=== PATIENT | female | born 1990 | race Caucasian/White ===

== ENCOUNTER 2021-04-30 14:14 | Emergency (ER) | payer OTHER ==
[2021-04-30] MEDS ORDERED: NALOXONE HCL 2 MG/2 ML VIAL ONE (14:37)
[2021-04-30] MEDS ORDERED: NA CHLORIDE 0.9% 1,000 ML ONE (14:37)
[2021-04-30 14:54] LABS: Urine Blood Negative (Negative); Urine Glucose Negative (Negative); Urine Protein Negative (Negative); Urine Specific Gravity >=1.030 (1.005-1.030)
[2021-04-30 14:55] LABS: Absolute Lymphocytes (CBC) 1.9 K/uL (0.7-4.9); Basophils % 0.7 % (0-1.3); Hematocrit 44.4 % (36.0-45.0); Lymphocytes % 23.5 % (15.3-44.8); MPV 8.1 fL (7.6-11.3); RBC Red Blood Cell Count 4.69 M/uL (3.86-4.86)
[2021-04-30 15:02] LABS: Protime INR 0.99
[2021-04-30 15:18] LABS: Barbiturates NEGATIVE (NEGATIVE); Benzodiazepines POSITIVE (NEGATIVE); Cocaine NEGATIVE (NEGATIVE); METHAMPHETAM POSITIVE (NEGATIVE); Methadone NEGATIVE (NEGATIVE); Opiates NEGATIVE (NEGATIVE); Phencyclidine NEGATIVE (NEGATIVE); THC Cannibis POSITIVE (NEGATIVE)
[2021-04-30 15:19] LABS: ALT/SGPT 25 U/L (12-78); AST/SGOT 23 U/L (15-37); Albumin 4.6 g/dL (3.4-5.0); Alkaline Phosphatase 111 U/L (45-117); BUN Blood Urea Nitrogen 12 mg/dL (7-18); Bicarbonate 29 mmol/L (21-32); Bilirubin Direct 0.1 mg/dL (0-0.2); Bilirubin Total 0.5 mg/dL (0.2-1.0); Glucose Level 103 mg/dL (74-106); Potassium 3.7 mmol/L (3.5-5.1); Protein, Total 9.1 g/dL (6.4-8.2); Sodium Level 137 mmol/L (136-145)
[2021-04-30 15:39] LABS: Urine Specific Gravity/Preg >1.030 (1.005-1.030)
--- NOTE | 2021-04-30 16:08 | RAD REPORT ---
EXAM DESCRIPTION: RAD - Ankle Right 2 View - 04/30/2021 3:15 pm CLINICAL HISTORY: SWELLING Pain and swelling. COMPARISON: No comparisons FINDINGS: Small fracture is seen involving the distal most aspect of the fibula. There is mild to mo derate adjacent soft tissue swelling. No dislocation is evident.
[2021-04-30] MEDS ORDERED: FLUMAZENIL 0.1 MG/ML (5 mL VIAL) IV ONE (16:59)
--- NOTE | 2021-04-30 18:15 | ER ---
Nurse's Notes [facility] Name: Felicitas Campbell Age: 31 yrs Sex: Female : 1990 Arrival Date: 04/30/2021 Time: 14:16 Bed 2 Private MD: Diagnosis: Nondisplaced fracture of lateral malleolus of right fibula;Drug abuse counseling and surveillance Presentation: 04/30 14:16 Chief complaint: Patient states: Re-injured R ankle today, initial injury 2 months ago. ll1 Injecting meth since last night. Narcan 2mg IN given en route. VSS. Smoked marijuana laced with fentanyl today. Coronavirus screen: Client denies travel out of the [place] in the last 14 days. At this time, the client does not indicate any symptoms associated with coronavirus-19. Ebola Screen: Patient denies travel to an Ebola-affected area in the 21 days before illness onset. Initial Sepsis Screen: Does the patient meet any 2 criteria? No. Patient's initial sepsis screen is negative. Does the patient have a suspected source of infection? No. Patient's initial sepsis screen is negative. Risk Assessment: Do you want to hurt yourself or someone else? Patient reports no desire to harm self or others. Onset of symptoms was April 30, 2021. 14:16 Method Of Arrival: EMS: [facility] [place] 14:16 Acuity: BERNIE 3 ll1 Triage Assessment: 14:20 General: Appears unkempt, Behavior is cooperative, appropriate for age, flat. Pain: ll1 Complains of pain in R ankle. Neuro: Level of Consciousness is obeys commands, listless, Oriented to person, place, time, situation, Dental Laboratory Manager are weak bilaterally Full function Weakness Speech is normal, Facial symmetry appears normal, Reports weakness. Cardiovascular: No deficits noted. Respiratory: No deficits noted. Musculoskeletal: Circulation, motion, and sensation intact. Capillary refill < 3 seconds, Range of motion: intact in all extremities, Swelling present in R ankle. Injury Description: Bruise. REGISTER IN CHANCERY: 15:43 LMP N/A - control method ll1 Historical: - Allergies: 14:19 Amoxicillin; ll1 14:19 cyclobenzaprine HCl; ll1 14:19 PENICILLINS; ll1 - PMHx: 14:19 DRUG ADDICTION; Umbilical hernia; ll1 - PSHx: 14:19 section; ll1 - Immunization history:: Adult Immunizations up to date. - Social history:: Smoking status: Patient reports the use of cigarette tobacco products, smokes one-half pack cigarettes per day. Screenin:57 Abuse screen: Denies threats or abuse. Nutritional screening: No deficits noted. ll1 Tuberculosis screening: No symptoms or risk factors identified. Fall Risk Fall in past 12 months (25 points). Secondary diagnosis (15 points) impaired mobility, drug use. IV access (20 points). Ambulatory Aid- Crutches/Cane/Walker (15 pts). Total Vega Fall Scale indicates High Risk Score (45 or more points). Fall prevention measures have been instituted. Side Rails Up X 2 Frequent Obs/Assessments Occuring As available patient and family educated on Fall Prevention Program and Strategies. Assessment: 15:20 Reassessment: No changes from previously documented assessment. Patient and/or family ll1 updated on plan of care and expected duration. Pain level reassessed. 16:21 Reassessment: No changes from previously documented assessment. Patient and/or family ll1 updated on plan of care and expected duration. Pain level reassessed. Patient is alert, oriented x 3, equal unlabored respirations, skin warm/dry/pink. 17:05 Reassessment: No changes from previously documented assessment. Patient and/or family ll1 updated on plan of care and expected duration. Pain level reassessed. 18:00 Reassessment: No changes from previously documented assessment. Patient and/or family ll1 updated on plan of care and expected duration. Pain level reassessed. Patient is alert, oriented x 3, equal unlabored respirations, skin warm/dry/pink. 18:25 Musculoskeletal: Circulation, motion, and sensation intact. Capillary refill < 3 ll1 seconds, Swelling present in R ankle. 18:27 Reassessment: Requesting pain medicine. Dr. Weeks will not give her any due to being ll1 over sedated when arrived. Boyfriend verbalized understanding. . Vital Signs: 14:16 BP 137 / 106; Pulse 70; Resp 17; Temp 97.3; Pulse Ox 99% ; Pain 8/10; ll1 14:54 BP 117 / 74; ll1 15:42 BP 105 / 77; Pulse 66; Resp 16; Pulse Ox 99% ; ll1 17:05 BP 95 / 60; Pulse 60; Resp 15; Pulse Ox 98% ; ll1 18:24 BP 102 / 61; Pulse 61; Resp 16; Temp 98.0; Pulse Ox 99% ; Pain 10/10; ll1 ED Course: 14:16 Patient arrived in ED. ll1 14:17 Arlene Weeks MD is Attending Physician. sp3 14:19 Triage completed. ll1 14:20 Arm band placed on Patient placed in an exam room, on a stretcher. ll1 14:38 Missed attempt(s): 22 gauge in right antecubital area. Bleeding controlled, band aid ll1 applied, catheter tip intact. 14:40 Inserted saline lock: 22 gauge in right antecubital area, using aseptic technique. iw Blood collected. 14:43 Temitope Casey, JOSE EDUARDO is Primary Nurse. ll1 14:58 Patient has correct armband on for positive identification. Bed in low position. Call ll1 light in reach. Side rails up X 1. Pulse ox on. NIBP on. 15:16 Ankle Right 2 View XRAY In Process Unspecified. EDMS 15:39 EKG done, by ED staff, reviewed by Arlene Weeks MD. em1 18:14 Brian Wood MD is Referral Physician. sp3 18:20 Crutch training done. Air stirrup applied to right ankle. ll1 18:25 IV discontinued, intact, bleeding controlled, No redness/swelling at site. Pressure ll1 dressing applied. 18:26 No provider procedures requiring assistance completed. ll1 Administered Medications: 14:43 Drug: NARcan (naloxone) 2 mg Route: IVP; Site: right antecubital; ll1 15:43 Follow up: Response: No adverse reaction; RASS: Drowsy (-1) ll1 14:43 Drug: NS 0.9% 1000 ml Route: IV; Rate: 1 bolus; Site: right antecubital; ll1 17:04 Follow up: Response: No adverse reaction; IV Status: Completed infusion; IV Intake: ll1 1000ml 17:04 Drug: Flumazenil 0.2 mg Route: IVP; Site: right antecubital; ll1 18:26 Follow up: Response: No adverse reaction ll1 Intake: 17:04 IV: 1000ml; Total: 1000ml. ll1 Outcome: 18:14 Discharge ordered by . sp3 18:26 Discharged to home via wheelchair. ll1 18:26 Condition: stable 18:26 Discharge instructions given to patient, family, Instructed on discharge instructions, follow up and referral plans. crutch walking, Demonstrated understanding of instructions, follow-up care, medications, crutch walking. 18:30 Patient left the ED. ll1 Signatures: Dispatcher [employer] EDVirgie Boucher RN RN iw Martinez, Eric 1 Temitope Casey RN RN ll1 Arlene Weeks MD MD sp3
--- NOTE | 2021-04-30 18:15 | EDPHYS ---
Physician Documentation [facility] Name: Feilcitas Campbell Age: 31 yrs Sex: Female : 1990 Arrival Date: 04/30/2021 Time: 14:16 Bed 2 Private MD: ED Physician Arlene Weeks HPI: 04/30 14:30 This 31 yrs old Female presents to ER via EMS with complaints of Ankle Injury sp3 and drug use. 14:30 31-year-old female with a history of polysubstance drug abuse, homelessness, C-sections sp3 x3 presents via EMS for IV drug use of unknown substance (possibly laced with secondary substance) and smoking marijuana with fentanyl lacing as per EMS. Patient states that she gets all of her drugs from her friends. She is currently jobless and homeless and states [place] the [place] night. She has no complaints other than being "tired" and right ankle pain which she states she has had for several weeks after a possible twisting injury. On review of systems she denies headache, neck pain, chest pain, shortness of breath, URI symptoms, fever, abdominal pain, nausea, vomiting, diarrhea, rash, focal neuro deficit, or any other symptoms at this time. Patient did get Narcan prior to arrival by EMS intranasally.. 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 - Social history:: Smoking status: Patient reports the use of cigarette tobacco products, smokes one-half pack cigarettes per day. ROS: 14:32 Eyes: Negative for injury, pain, redness, and discharge, Neck: Negative for injury, sp3 pain, and swelling, Cardiovascular: Negative for chest pain, palpitations, and edema, Respiratory: Negative for shortness of breath, cough, wheezing, and pleuritic chest pain, Abdomen/GI: Negative for abdominal pain, nausea, vomiting, diarrhea, and constipation, Back: Negative for injury and pain, Skin: Negative for injury, rash, and discoloration, Neuro: Negative for headache, weakness, numbness, tingling, and seizure, Allergy/Immunology: Negative for hives, rash, and allergies, Endocrine: Negative for neck swelling, polydipsia, polyuria, polyphagia, and marked weight changes, Hematologic/Lymphatic: Negative for swollen nodes, abnormal bleeding, and unusual bruising. 14:32 All other systems are negative. Exam: 14:33 Head/Face: Normocephalic, atraumatic. Eyes: Pupils equal round and reactive to light, sp3 extra-ocular motions intact. Lids and lashes normal. Conjunctiva and sclera are non-icteric and not injected. Cornea within normal limits. Periorbital areas with no swelling, redness, or edema. ENT: Nares patent. No nasal discharge, no septal abnormalities noted. External auditory canals are clear. Oropharynx with no redness, swelling, or masses, exudates, or evidence of obstruction, uvula midline. Mucous membranes moist. Neck: Trachea midline, no thyromegaly or masses palpated, and no cervical lymphadenopathy. Supple, full range of motion without nuchal rigidity, or vertebral point tenderness. No Meningismus. Chest/axilla: Normal chest wall appearance and motion. Nontender with no deformity. No lesions are appreciated. Cardiovascular: Regular rate and rhythm with a normal S1 and S2. No gallops, murmurs, or rubs. Normal PMI, no JVD. No pulse deficits. Respiratory: Lungs have equal breath sounds bilaterally, clear to auscultation and percussion. No rales, rhonchi or wheezes noted. No increased work of breathing, no retractions or nasal flaring. Abdomen/GI: Soft, non-tender, with normal bowel sounds. No distension or tympany. No guarding or rebound. No evidence of tenderness throughout. Skin: Warm, dry with normal turgor. Normal color with no rashes, no lesions, and no evidence of cellulitis. Neuro: Awake and alert, GCS 15, oriented to person, place, time, and situation. Cranial nerves II-XII grossly intact. Motor strength 5/5 in all extremities. Sensory grossly intact. Cerebellar exam normal. Normal gait. Psych: Awake, alert, with orientation to person, place and time. Behavior, mood, and affect are within normal limits. 14:33 Constitutional: The patient appears Patient is slowly getting more sleepy however her pulse oxygenation is 98% on 2 L nasal cannula. She does have poor dentition consistent with methamphetamine use. She also has right lateral swelling of her ankle with normal pulses, normal neuro exam, normal capillary refill with palpable dorsalis pedis pulse. Track pina are evident bilateral antecubital fossa's consistent with IV drug use. Patient is afebrile with otherwise normal vital signs. 15:31 ECG was reviewed by the Attending Physician. EKG demonstrates normal sinus rhythm at 70 sp3 bpm with normal intervals, normal QRS, normal axis with nonspecific ST/T changes particularly inferiorly without any evidence of acute ischemia. Vital Signs: 14:16 BP 137 / 106; Pulse 70; Resp 17; Temp 97.3; Pulse Ox 99% ; Pain 8/10; ll1 14:54 BP 117 / 74; ll1 15:42 BP 105 / 77; Pulse 66; Resp 16; Pulse Ox 99% ; ll1 17:05 BP 95 / 60; Pulse 60; Resp 15; Pulse Ox 98% ; ll1 18:24 BP 102 / 61; Pulse 61; Resp 16; Temp 98.0; Pulse Ox 99% ; Pain 10/10; ll1 MDM: 14:17 Patient medically screened. sp3 14:35 Data reviewed: vital signs, nurses notes. ED course: 31-year-old female with unknown sp3 quantity of IV drug use and inhaled drug use. Unknown quantity, duration, and timing liter as observing her in the ED and continued Narcan administration. Due to her declining mental status we will give an additional 2 mg IV Narcan here in the emergency department continue to observe her. Standard toxicology work-up including urine drug screen, serum laboratory values, urinalysis, test and EKG will be obtained. Disposition based on patient course and laboratory findings. There is no suspicion of sexual assault or physical assault at this time and patient is denying both as well. She does contract for safety and is not suicidal or homicidal.. 18:10 ED course: Alert, awake, and yelling at the nursing staff and demanding to be sp3 discharged. We will oblige and discharge her with orthopedic follow-up.. 04/30 14:17 Order name: Acetaminophen; Complete Time: 15:29 sp3 04/30 14:17 Order name: Basic Metabolic Panel; Complete Time: 15:29 sp3 04/30 14:17 Order name: CBC with Diff; Complete Time: 15:29 sp3 04/30 14:17 Order name: ETOH Level; Complete Time: 15:29 sp3 04/30 14:17 Order name: Hepatic Function; Complete Time: 15:29 sp3 04/30 14:17 Order name: PT-INR; Complete Time: 15:29 sp3 04/30 14:17 Order name: Ptt, Activated; Complete Time: 15:29 sp3 04/30 14:17 Order name: Salicylate; Complete Time: 16:03 sp3 04/30 14:17 Order name: Urine Drug Screen; Complete Time: 15:29 sp3 04/30 14:29 Order name: Ankle Right 2 View XRAY; Complete Time: 16:47 sp3 04/30 14:54 Order name: Urine --Ancillary (enter results); Complete Time: 16:03 bd 04/30 14:54 Order name: Urine Dipstick-Ancillary; Complete Time: 15:29 EDMS 04/30 14:17 Order name: EKG; Complete Time: 14:18 sp3 04/30 14:17 Order name: EKG - Nurse/Tech; Complete Time: 15:26 sp3 04/30 14:17 Order name: IV Saline Lock; Complete Time: 14:24 sp3 04/30 14:17 Order name: Labs collected and sent; Complete Time: 14:24 sp3 04/30 14:17 Order name: Suicide Screening ([place]); Complete Time: 14:55 sp3 04/30 14:17 Order name: Urine Dipstick-Ancillary (obtain specimen); Complete Time: 14:55 sp3 04/30 14:18 Order name: Urine Test (obtain specimen); Complete Time: 14:55 sp3 04/30 16:53 Order name: Splint - Ankle: Aircast; Complete Time: 18:26 sp3 04/30 16:53 Order name: Crutches; Complete Time: 18:25 sp3 Administered Medications: 14:43 Drug: NARcan (naloxone) 2 mg Route: IVP; Site: right antecubital; ll1 15:43 Follow up: Response: No adverse reaction; RASS: Drowsy (-1) ll1 14:43 Drug: NS 0.9% 1000 ml Route: IV; Rate: 1 bolus; Site: right antecubital; ll1 17:04 Follow up: Response: No adverse reaction; IV Status: Completed infusion; IV Intake: ll1 1000ml 17:04 Drug: Flumazenil 0.2 mg Route: IVP; Site: right antecubital; ll1 18:26 Follow up: Response: No adverse reaction ll1 Disposition Summary: 04/30/21 18:14 Discharge Ordered Location: Home sp3 Condition: Stable sp3 Diagnosis - Nondisplaced fracture of lateral malleolus of right fibula sp3 - Drug abuse counseling and surveillance sp3 Followup: sp3 - With: Brian Wood MD - When: 1 - 2 days - Reason: Recheck today's complaints Discharge Instructions: - Discharge Summary Sheet sp3 - Nondisplaced Fibular Ankle Fracture Treated With Immobilization sp3 Forms: - Medication Reconciliation Form sp3 - Thank You Letter sp3 - Antibiotic Education sp3 - Prescription Opioid Use sp3 Signatures: Dispatcher [employer] EDMS Temitope Casey RN RN [facility] Arlene Weeks MD MD sp3 Corrections: (The following items were deleted from the chart) 14:36 14:35 ED course: 31-year-old female with unknown quantity of IV drug use and inhaled sp3 drug use. Unknown quantity, duration, and timing liter as observing her in the ED and continued Narcan administration. Due to her declining mental status we will give an additional 2 mg IV Narcan here in the emergency department continue to observe her. Standard toxicology work-up including urine drug screen, serum laboratory values, urinalysis, test and EKG will be obtained. Disposition based on patient course and laboratory findings. There is no suspicion of sexual assault or physical assault at this time and patient is denying both as well. She does contract for safety and is not suicidal or homicidal.. sp3
[2021-04-30 18:56] VITALS: BP 102/61; TEMP 98; O2SAT 99
--- NOTE | 2021-05-02 11:26 | EKG ---
Test Date: 2021-04-30 Test Time: 15:30:59 Packager And Strapper: SANTANA MEASUREMENT RESULTS: Intervals: Rate: 70 HI: 152 QRSD: 80 QT: 400 QTc: 432 Chappells: P: 85 HI: 152 QRS: 72 T: 64 INTERPRETIVE STATEMENTS: Normal sinus rhythm Normal ECG Compared to ECG 12/22/2012 03:52:49 No significant changes Electronically Signed On 05-02-21 11:20:56 BOOKKEEPING MACHINE OPERATOR by Bong Wilkins
--- OUTSIDE RECORDS SUMMARY | 2021-05-05 16:28 | XMS REPORT | Continuity of Care Document ---
:1990 Author Organization [facility] t Address Person [facility] Jonathan Velazco [address] [place] [address] Care Team Providers Name Role Phone Flores Modi Attending Clinician Payers Payer Name Policy Type Policy Number Effective Date Expiration Date [facility] [id number] 2014 LONGTERM 00:00:00 Problems Condition Condition Condition Status Onset Resolution Last Treating Co mments Source Name Details Category Date Date Treatment Clinician Date Liveborn Liveborn Disease Active Unive rs by by 1 ity of 00:00: [facility] Medical Branch Previous Previous Disease Active Unive rs - ity of section section 00:00: [place] complicati complicati 00 Me dical ng ng Branch , , antepartum antepartum condition condition or or complicati complicati on on 39 weeks 39 weeks Disease Active Unive rs gestation gestation 1- ity of of of 00:00: [place] 00 Medi kaylen Branch Rubella Rubella Disease Active 2013-06 Univers non-immune non-immune 06-26 it y of status, status, 00:00: [place] antepartum antepartum 00 Me dical Branch History of History of Disease Active 2013-06 U nivers drug abuse drug abuse 0-02 it y of 00:00: [place] 00 Medical Branch Bipolar Bipolar Disease Active Overview: Univ ers disorder disorder 11-02 ICD10 ity of 00:00: Diagnosis [place] 00 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 Anxiety Anxiety Disease Active Univers and and 11-02 [place] of depression [place] Withdrawal Withdrawal Problem Active [facility] - opioids opioids Memoria l [facility] Drug Drug Problem Active [facility] addiction addiction [facility] - [facility] l [facility] Generalize Generalize Problem Active [facility] d [facility] - abdominal abdominal Zbigniew priyanka pain pain l [facility] Epigastric Epigastric Problem Active [facility] pain pain [facility] Cough Cough Diagnosis Active [facility] Mild Mild Diagnosis Active [facility] reactive reactive [facility] - airways airways Memoria disease, disease, l unspecifie unspecifie Ou tpati d whether d whether ent persistent persistent Cl inics History of History of Problem Active [facility] opioid opioid [facility] - abuse abuse Memoria l [facility] Abnormal Abnormal Problem Active [facility] urinalysis urinalysis Shira kes - Memoria l [facility] Bipolar Bipolar Problem Active [facility] disorder disorder [facility] Depression Depression Problem Active [facility] with with [facility] - anxiety anxiety Memoria l [facility] Depression Depression Problem Active [facility] Amenorrhea Amenorrhea Problem Active [facility] Anxiety Anxiety Problem Active [facility] Memory Memory Problem Active [facility] problem problem [facility] Peripheral Peripheral Problem Active [facility] edema edema [facility] ent Clinics Increased Increased Problem Active [facility] abdominal abdominal Luke s - girth girth Memoria l [facility] Abnormal Abnormal Problem Active [facility] weight weight [facility] - gain gain Memoria l [facility] Therapeuti Therapeuti Problem Active [facility] c drug c drug [facility] - monitoring monitoring Me moria l [facility] Need for Need for Problem Active [facility] t hepatitis hepatitis Luke s - C C Memoria screening screening l test test [facility] ent [facility] Umbilical Umbilical Problem Active [facility] hernia hernia [facility] - without without Memoria obstructio obstructio l n and n and Outpati without without ent gangrene gangrene Clinic s Non-intrac Non-intrac Problem Active [facility] table table [facility] - vomiting vomiting Memori a with with l nausea, nausea, Outpati unspecifie unspecifie en t d vomiting d vomiting Cl inics type type Allergies, Adverse Reactions, Alerts Allergy Allergy Status Severity Reaction(s) Onset Inactive Treating Comm ents Source Name Type Date Date Clinician Tramadol Propensi Active Hives 2013-06 Univer s ty to 0-02 ity of adverse 00:00: [place] reaction 00 Medical s Branch TRAMADOL DRUG Active Hives 2013-06 Univers INGREDI 0-02 ity of 00:00: [place] 00 Medical Branch Amoxicil Propensi Active Shortness of 0 Univers sun ty to Breath 5-13 ity of adverse 00:00: [place] reaction 00 Medical s to Branch drug Cycloben Propensi Active Shortness of 0 Univers zaprine ty to Breath 5-13 ity of Hcl adverse 00:00: [place] reaction 00 Medical s to Branch drug Penicill Propensi Active Shortness of Univers ins ty to Breath 5-13 ity of adverse 00:00: [place] reaction 00 Medical s to Branch drug AMOXICIL DRUG Active SOB 0 Univers SUN INGREDI 5-13 ity of 00:00: [place] 00 Medical Branch CYCLOBEN DRUG Active SOB 0 Univers ZAPRINE INGREDI 5-13 ity of HCL 00:00: [place] 00 Medical Branch PENICILL Drug Active SOB 0 Univers INS Class 5-13 ity of 00:00: [place] 00 Medical Branch PCN Adverse Active diarrhea [facility] Reaction [facility] Cycloben Adverse Active hives [facility] zaprine Reaction [facility] - HCl Memoria l Outpat[facility] ent Clinics Amoxicil Adverse Active nausea and [facility] sun Reaction vomiting [facility] Social History Social Habit Start Date Stop Date Quantity Comments Source Alcohol Comment ocassional [facility] Sex Assigned At [facility] Exposure to Not sure [place] of SARS-CoV-2 (event) [facility] Alcohol intake 2020-03-30 2020-03-30 Current drinker Unive rsity of 00:00:00 00:00:00 of alcohol [facility] (finding) [place] Cigarettes smoked 2020-03-30 2020-03-30 Univers ity of current (pack per 00:00:00 00:00:00 ) - Reported Branch Tobacco use and 2020-03-30 2020-03-30 Never used Universit y of exposure 00:00:00 00:00:00 [facility] History of tobacco 2014-02-17 Cigarette Smoker University of use 00:00:00 [facility] Smoking Status Start Date Stop Date Source Current every day smoker 2020-03-30 00:00:00 [facility] [place] [facility] Medications Ordered Filled Start Stop Current Ordering Indication Dosage Frequency Signature Comments Components Source Medication Medication Date Date Medication? Clinician (SIG) Name Name chlorpromaz 2019-06 Yes Take by Un keke ine HCl 0-08 mouth. ity of (THORAZINE 16:59: [place] ORAL) 55 Medical Branch buspirone 2019-06 Yes Take by Univ ers HCl 0-08 mouth. ity of (BUSPIRONE 16:59: [place] ORAL) 55 Medical Branch benztropine 2019-06 Yes Take by Un keke mesylate 0-08 mouth. ity of (BENZTROPIN 16:59: [place] E ORAL) 55 Medical Branch cefdinir 2019-06 2020- No [id number] 600mg Take 2 Univers 300 mg 0-19 capsules ity of capsule 00:00: 04:59 by mouth [place] 00 :00 every 24 Medical (twenty-fo Branch ur) hours for 10 days. Ondansetron Ondansetron 2018-06 Yes Shayy [address] [facility] [address] HCl HCl 1-19 [place] as needed [facility] - 00:00: for Memoria 00 nausea/vom l iting [facility] Clinics Furosemide Furosemide Yes Shayy [address] [facility] 8-14 [place] [facility] - 00:00: Memoria 00 l Outpati ent Clinics Perphenazin Perphenazin Yes Shayy [address] [facility] e e 7-03 [place] [facility] - 00:00: Memoria 00 l [facility] Clinics ChlorproMAZ ChlorproMAZ Yes Shayy [address] INE HCl INE HCl 7-03 [place] [facility] - 00:00: Memoria 00 l [facility] Clinics ibuprofen 2020- No 600mg Take 1 Univ ers 600 mg -24 10-08 tablet by ity of tablet 00:00: 00:00 mouth [place] 00 :00 every 6 Medical (six) Branch hours as needed for Pain (scale 1-3) or Pain (scale 4-6) (Pain). Take with food or milk. HYDROcodone 2020- No 1{tbl} Take 1 U nivers -acetaminop 1-24 10-08 tablet by it y of hen (NORCO) 00:00: 00:00 [place] 10-325 mg 00 :00 every 6 Medical tablet (six) Branch hours as needed for Pain (scale 1-3), Pain (scale 4-6) or Pain (scale 7-10). ibuprofen 2019- No 800mg Take 1 Univ ers 800 mg 07-16 tablet by ity of tablet 00:00: 00:00 mouth [place] 00 :00 every 8 Medical (eight) Branch hours as needed for Pain (scale 1-3). carisoprodo 2019- No 350mg Take 1 Un keke l 350 mg 07-16 tablet by ity o f tablet 00:00: 00:00 mouth [place] 00 :00 every 4 Medical (four) Branch hours as needed for Pain (scale 1-3). HydrOXYzine HydrOXYzine Yes Shayy as [facility] HCl HCl [place] directed [facility] Cogentin Cogentin Yes Shayy as [facility] [place] directed [facility] Suboxone Suboxone Yes Shayy as [facility] [place] directed [facility] ent Clinics Immunizations Ordered Filled Immunization Date Status Comments [facility] e Immunization Name Name Influenza Virus 2014-04-12 Completed [facility] y of Vaccine Quad IM 3+ 00:00:00 [facility] TDAP 2014-03-[address] [facility] 00:00:00 [facility] PPD (TB) 2014-02-[address] [facility] 00:00:00 [facility] Rubella 2009-11-[address] [facility] 00:00:00 [facility] Td 2009-06-[address] [facility] 00:00:00 [facility] Vital Signs Vital Name Observation Time Observation Value Comments Source Systolic blood 2020-03-30 17:10:00 115 mm[Hg] Univer sity of pressure [facility] Diastolic blood 2020-03-30 17:10:00 83 mm[Hg] [facility] Heart rate 2020-03-30 16:06:00 86 /min [facility] Body temperature 2020-03-30 16:06:00 36.94 [facility] 2020-03-30 16:06:00 18 /min [facility] Body weight 2020-03-30 16:06:[address] [facility] Branch BMI 2020-03-30 16:06:00 36.33 kg/m2 [facility] Oxygen saturation in 2020-03-30 16:06:00 97 /min University Arterial blood by [facility] Pulse oximetry Branch Procedures Procedure Date / Time Performed Performing Clinician Josi dickens EBV-MONONUCLEOSIS 2020-03-30 17:17:00 Sylvia Early [facility] SCREEN [facility] RAPID STREP SCREEN 2020-03-30 16:09:00 Cristi Messer [facility] FOR GROUP A Medical Branch Encounters Start End Encounter Admission Attending Care Care Encounter Source Date/Time Date/Time Type Type Clinicians Facility Department ID 2020-03-30 2020-03-30 Emergency Nneka [facility] [id number] Univers 11:12:00 14:01:00 Sylvia Tanner [place] [id number] i ty [facility] [id number] [facility] [id number] [facility] 084 Branch 2020-03-30 2020-03-30 Emergency X [facility] ERT [id number] Univers 10:45:00 10:45:00 ity of [facility] 2019-09-24 2019-09-24 [facility] [id number] [facility] 11:00:00 11:00:00 [facility] Medicine l Medicine Outpati ent Clinics 2019-09-23 2019-09-23 [facility] [id number] 09:03:00 09:03:00 [facility] Family Medicine l Medicine Outpati ent Clinics 2019-06-29 2019-06-29 [facility] [id number] [facility] 15:00:00 15:00:00 [facility] Family Medicine l Medicine Outpati ent Clinics 2019-06-01 2019-06-01 [facility] [id number] [facility] 16:20:00 16:20:00 [facility] Medicine l Medicine Outpati ent Clinics 2019-05-11 2019-05-11 [facility] [id number] 11:00:00 11:00:00 t [facility] Medicine Outpati ent Clinics 2019-04-27 2019-04-27 [facility] [id number] 08:00:00 08:00:00 t [facility] Medicine Outpati ent Clinics 2019-04-01 2019-04-01 [facility] [id number] [address] 22:08:00 22:08:00 t [facility] Medicine Outpati ent Clinics 2019-04-01 2019-04-01 [facility] [id number] 10:40:00 10:40:00 t [facility] Medicine Outpati ent Clinics 2019-03-09 2019-03-09 [facility] [id number] 14:55:00 14:55:00 [facility] Medicine Outpati ent Clinics 2019-02-12 2019-02-12 [facility] [id number] 15:37:00 15:37:00 [facility] Medicine Outpati ent Clinics 2019-02-03 2019-02-03 [facility] [id number] 13:40:00 13:40:00 [facility] Medicine Outpati ent Clinics 2018-12-28 2018-12-28 [facility] [id number] 21:59:00 21:59:00 [facility] Medicine Outpati ent Clinics 2018-12-23 2018-12-23 [facility] [id number] 14:00:00 14:00:00 [facility] Medicine Outpati ent Clinics Results Test Description Test Time Test Comments Results Result Comments Source EBV-MONONUCLEOSIS SCREEN 2020-03-30 18:24:00 Test Item Value Reference Range Interpretation Comme nts EBV Mononucleosis Screen (test code = 9205993410) Negative [facility] t[facility] Lab Interpretation (test code = 61818-4) Normal [facility] STREP SCREEN FOR GROUP [id number] 16:44:00 Test Item Value Reference Range Interpretation Comments Streptococcus pyogenes (group A) Negative Negative antigen (test code = 81203-0) Lab Interpretation (test code = Normal 80102-0) [facility]
== END 2021-04-30 18:30 | disposition home or self-care (01) ==
LOC: ER 14:14
DX: S82.64XA Nondisplaced fracture of lateral malleolus of right fibula, initial encounter for closed fracture (principal); Z71.51 Drug abuse counseling and surveillance of drug abuser; X50.1XXA Overexertion from prolonged static or awkward postures, initial encounter; F17.210 Nicotine dependence, cigarettes, uncomplicated; Z88.0 Allergy status to penicillin; Z88.1 Allergy status to other antibiotic agents; Z88.8 Allergy status to other drugs, medicaments and biological substances
CPT/HCPCS: 96361; 93005; 85025; 80048; 36415; 80320; 80329 ×2; 81025; 85610; 80076; 85730; 81003; 80307; 73600; 96375; 96374; 99291; 99292; J2310; J7030

== ENCOUNTER 2021-10-01 10:23 | Emergency (ER) | payer OTHER ==
--- OUTSIDE RECORDS SUMMARY | 2021-10-01 10:32 | XMS REPORT | Continuity of Care Document ---
:1990 Author Organization [facility] t Address [address] [place] [address] Care Team Providers Name Role Phone Talya Arreaga Primary Care Physician Flores Modi Attending Clinician Payers Payer Name Policy Type Policy Number Effective Date Expiration Date Formerly [facility] [id number] 2017 [facility] MEDICAID 00:00:00 [facility] [id number] 2014 [facility] 00:00:00 Problems Condition Condition Condition Status Onset Resolution Last Treating Co mments Source Name Details Category Date Date Treatment Clinician Date Liveborn Liveborn Disease Active Unive rs by by 1-22 ity of 00:00: [place] s 00 Medical Branch 39 weeks 39 weeks Disease Active Unive rs gestation gestation 1-21 ity of of of 00:00: [place] 00 Medi kaylen Branch Previous Previous Disease Active Unive rs 1-21 ity of section section 00:00: [place] complicati complicati 00 Me dical ng ng Branch , , antepartum antepartum condition condition or or complicati complicati on on Rubella Rubella Disease Active 2013-06 Univers non-immune non-immune 104 it y of status, status, 00:00: [place] antepartum antepartum 00 Me dical Branch History of History of Disease Active 2013-06 U nivers drug abuse drug abuse 0-02 it y of 00:00: [place] 00 Medical Branch Bipolar Bipolar Disease Active Overview: Univ ers disorder disorder 11-02 Formattin ity of 00:00: g of this note Medical might be Branch different from the original. ICD10 Diagnosis Term Craps Manager Utility Anxiety Anxiety Disease Active Univers and and 11-02 [place] of depression [place] History of History of Problem Active [facility] opioid opioid [facility] abuse abuse [facility] Abnormal Abnormal Problem Active [facility] urinalysis urinalysis Shira kes - [facility] Bipolar Bipolar Problem Active [facility] disorder disorder [facility] Depression Depression Problem Active [facility] with with [facility] - anxiety anxiety [facility] Depression Depression Problem Active [facility] Amenorrhea Amenorrhea Problem Active [facility] Anxiety Anxiety Problem Active [facility] Memory Memory Problem Active [facility] problem problem [facility] - [facility] Peripheral Peripheral Problem Active [facility] edema edema [facility] Increased Increased Problem Active [facility] abdominal abdominal Luke s - girth girth [facility] Abnormal Abnormal Problem Active [facility] weight weight [facility] - gain gain [facility] Therapeuti Therapeuti Problem Active [facility] c drug c drug [facility] - monitoring monitoring Me moria l [facility] Need for Need for Problem Active [facility] t hepatitis hepatitis Luke s - C C Memoria screening screening l test test [facility] Umbilical Umbilical Problem Active [facility] hernia hernia [facility] - without without Memoria obstructio obstructio l n and n and Outpati without without ent gangrene gangrene Clinic s Non-intrac Non-intrac Problem Active [facility] table table [facility] - vomiting vomiting Memori a with with l nausea, nausea, Outpati unspecifie unspecifie en t d vomiting d vomiting Cl inics type type Withdrawal Withdrawal Problem Active [facility] from from [facility] - opioids opioids [facility] Drug Drug Problem Active [facility] addiction addiction [facility] - [facility] Generalize Generalize Problem Active [facility] d d [facility] - abdominal abdominal Zbigniew priyanka pain pain l Outpati ent Clinics Epigastric Epigastric Problem Active [facility] pain pain [facility] Clinics Cough Cough Diagnosis Active [facility] Mild Mild Diagnosis Active [facility] reactive reactive [facility] - airways airways Memoria disease, disease, l unspecifie unspecifie Ou tpati d whether d whether ent persistent persistent Cl inics Allergies, Adverse Reactions, Alerts Allergy Allergy Status [...] Branch drug Penicill Propensi Active Shortness of 0 Univers ins ty to Breath 5-13 ity of adverse 00:00: [place] reaction 00 Medical s to Branch drug AMOXICIL DRUG Active SOB 0 Univers SUN INGREDI 5-13 ity of 00:00: [place] 00 Medical Branch CYCLOBEN DRUG Active SOB 2011-0 Univers ZAPRINE INGREDI 5-13 ity of HCL 00:00: [place] 00 Medical Branch PENICILL Drug Active SOB 0 Univers INS Class 5-13 ity of 00:00: [place] 00 Medical Branch PCN Adverse Active diarrhea [facility] Reaction [facility] Cycloben Adverse Active hives [facility] zaprine Reaction [facility] - HCl [facility] Amoxicil Adverse Active nausea and [facility] sun Reaction vomiting [facility] Social History Social Habit Start Date Stop Date Quantity Comments Source Alcohol Comment ocassional Universit y of [facility] Exposure to Not sure University of SARS-CoV-2 (event) [facility] Alcohol intake 2020-03-30 2020-03-30 Current drinker Unive rsity of 00:00:00 00:00:00 of alcohol [place] Medical (finding) Branch Cigarettes smoked 2017-07-14 2017-07-14 Univers ity of current (pack per 00:00:00 00:00:00 ) - Reported Branch Tobacco use and 2017-07-14 2017-07-14 Never used Universit y of exposure 00:00:00 00:00:00 [facility] History of tobacco 2014-02-17 Cigarette Smoker University of use 00:00:00 [facility] Sex Ass[birth year] At [birth year] Universit y of 00:00:00 00:00:00 [facility] Smoking Status Start Date Stop Date Source Current every day smoker 2017-07-14 00:00:00 Uni versity of [facility] Medications Ordered Filled Start Stop Current Ordering [...] 16:59: [place] E ORAL) 55 Medical Branch chlorpromaz 2019-06 Yes Take by Un keke ine HCl 0-08 mouth. ity of (THORAZINE 11:59: [place] ORAL) 55 Medical Branch buspirone 2019-06 Yes Take by Univ ers HCl 0-08 mouth. ity of (BUSPIRONE 11:59: [place] ORAL) 55 Medical Branch benztropine 2019-06 Yes Take by Un keke mesylate 0-08 mouth. ity of (BENZTROPIN 11:59: [place] E ORAL) 55 Medical Branch cefdinir 2019-06 2020- No [id number] 600mg Take 2 Univers 300 mg 0-08 -19 capsules ity of capsule 00:00: 04:59 by mouth [place] 00 :00 every 24 Medical (twenty-fo Branch ur) hours for 10 days. Ondansetron Ondansetron 2018-06 Yes Shayy [address] [address] HCl HCl 19 [place] as needed [facility] - 00:00: for Memoria 00 nausea/vom l iting Outpati ent Clinics Furosemide Furosemide Yes Shayy [address] [facility] [address] 8-14 [place] [facility] - 00:00: [facility] 00 l [facility] Perphenazin Perphenazin Yes Shayy [address] e e 7-03 [place] [facility] - 00:00: [facility]oria 00 l [facility] ChlorproMAZ ChlorproMAZ Yes Shayy [address] INE HCl INE HCl 7-03 [place] [facility] - 00:00: Memoria 00 l Outpati ent Clinics HYDROcodone 2020- No 1{tbl} Take 1 U nivers -acetaminop 1-24 10-08 tablet by it y of hen (NORCO) 00:00: 00:00 [place] 10-325 mg 00 :00 every 6 Medical tablet (six) Branch hours as needed for Pain (scale 1-3), Pain (scale 4-6) or Pain (scale 7-10). ibuprofen 2020- No 800mg Take 1 Univ ers 800 mg 1-24 10-08 tablet by ity of tablet 00:00: 00:00 mouth [place] 00 :00 every 8 Medical (eight) Branch hours as needed for Pain (scale 1-3). carisoprodo 2020- No 350mg Take 1 Un keke l 350 mg 1-24 10-08 tablet by ity o f tablet 00:00: 00:00 mouth [place] 00 :00 every 4 Medical (four) Branch hours as needed for Pain (scale 1-3). ibuprofen 2020- No 600mg Take 1 Univ ers 600 mg 1-24 10-08 tablet by ity of tablet 00:00: 00:00 mouth [place] 00 :00 every 6 Medical (six) Branch hours as needed for Pain (scale 1-3) or Pain (scale 4-6) (Pain). Take with food or milk. HydrOXYzine HydrOXYzine Yes Shayy as [facility] HCl HCl [place] directed [facility] Cogentin Cogentin Yes Shayy as [facility] [place] directed [facility] Suboxone Suboxone Yes Shayy as [facility] [place] directed [facility] Immunizations Ordered Filled Immunization Date Status Comments [facility] e Immunization Name Name Influenza Virus 2014-04-12 Completed Universit y of Vaccine Quad IM 3+ 00:00:00 [facility] YRS Branch Influenza Virus 2014-04-12 Completed Universit y of Vaccine Quad IM 3+ 00:00:00 [facility] YRS Branch TDAP 2014-03-24 Completed University of 00:00:00 [facility] TDAP 2014-03-24 Completed University of 00:00:00 [facility] PPD (TB) 2014-02-16 Completed University of 00:00:00 [facility] PPD (TB) 2014-02-16 Completed University of 00:00:00 [facility] Rubella 2009-11-02 Completed University of 00:00:00 [facility] Rubella 2009-11-02 Completed University of 00:00:00 [facility] Td 2009-06-23 Completed University of 00:00:00 [facility] Td 2009-06-23 Completed University of 00:00:00 [facility] Vital Signs Vital Name Observation Time Observation Value Comments Source Systolic blood 2021-09-26 00:29:00 112 mm[Hg] Univer sity of pressure [facility] Diastolic blood 2021-09-26 00:29:00 75 mm[Hg] Unive rsity of [facility] Heart rate 2021-09-26 00:29:00 80 /min [facility] Body temperature 2021-09-26 00:29:00 36.67 [facility] Respiratory rate 2021-09-26 00:29:00 20 /min [facility] Oxygen saturation in 2021-09-26 00:29:00 100 /min [facility] Arterial blood by [facility] Pulse oximetry Branch Body weight 2021-09-26 00:28:00 65.772 kg [facility] BMI 2021-09-26 00:28:00 28.32 kg/m2 [facility] Systolic blood 2020-03-30 17:10:00 115 mm[Hg] Univer sity of pressure [facility] Diastolic blood 2020-03-30 17:10:00 83 mm[Hg] Unive rsity of pressure [facility] Heart rate 2020-03-30 16:06:00 86 /min [facility] Body temperature 2020-03-30 16:06:00 36.94 [facility] Respiratory rate 2020-03-30 16:06:00 18 /min [facility] Body weight 2020-03-30 16:06:00 84.369 kg [facility] BMI 2020-03-30 16:06:00 36.33 kg/m2 [facility] Oxygen saturation in 2020-03-30 16:06:00 97 /min [facility] Arterial blood by [facility] Pulse oximetry Branch Procedures Procedure Date / Time Performed Performing Clinician Josi e EBV-MONONUCLEOSIS 2020-03-30 17:17:00 Sylvia Early [facility] SCREEN [facility] RAPID STREP SCREEN 2020-03-30 16:09:00 Cristi Messer [facility] FOR GROUP A Medical Branch Encounters Start End Encounter Admission Attending Care Care Encounter Source Date/Time Date/Time Type Type Clinicians Facility Department ID 2021-09-25 2021-09-25 Emergency X [facility] ERT [id number] Univers 19:27:00 20:21:00 ity of [facility] 2021-09-25 2021-09-25 Emergency [facility] [id number] Univers 19:27:00 20:21:00 [place] [id number] i ty of [place] [id number] [facility] [id number] [address] 2020-03-30 2020-03-30 Emergency Early, [facility] [id number] Univers 11:12:00 14:01:00 Sylvia Sahaton [id number] i ty of [place] [id number] [facility] [id number] [address] 2020-03-30 2020-03-30 Emergency X [facility] ERT [id number] Univers 10:45:00 10:45:00 ity of [facility] 2019-09-24 2019-09-24 [facility] [id number] [address] 11:00:00 11:00:[address] [facility] s [facility] Medicine [facility] 2019-09-23 2019-09-23 [facility] [id number] 09:03:00 09:03:[address] [facility] Medicine Medicine Outpati ent Clinics 2019-06-29 2019-06-29 [facility] [id number] 15:00:00 15:00:00 t [facility] Medicine Outpati ent Clinics 2019-06-01 2019-06-01 [facility] [id number] 16:20:00 16:20:[address] [facility] Medicine l Medicine Outpati ent Clinics 2019-05-11 2019-05-11 [facility] [id number] 11:00:00 11:00:00 t [facility] Medicine Outpati ent Clinics 2019-04-27 2019-04-27 [facility] [id number] 08:00:00 08:00:00 t [facility] Medicine Outpati ent Clinics 2019-04-01 2019-04-01 [facility] [id number] 22:08:00 22:08:00 t [facility] Medicine Outpati ent Clinics 2019-04-01 2019-04-01 [facility] [id number] 10:40:00 10:40:[address] [facility] Medicine Medicine Outpati ent Clinics 2019-03-09 2019-03-09 [facility] [id number] 14:55:00 14:55:[address] [facility] Medicine Medicine Outpati ent Clinics 2019-02-12 2019-02-12 [facility] [id number] 15:37:00 15:37:00 t [facility] Medicine Outpati ent Clinics 2019-02-03 2019-02-03 [facility] [id number] 13:40:00 13:40:00 [facility] Medicine l Medicine Outpati ent Clinics 2018-12-28 2018-12-28 Outpatient Diane Contrerast [id number] 21:59:00 21:59:00 [facility] 2018-12-23 2018-12-23 Outpatient Diane Contrerast [id number] 14:00:00 14:00:00 [facility] ent [facility] Results Test Description Test Time Test Comments Results Result Comments Source EBV-MONONUCLEOSIS SCREEN 2020-03-30 18:24:00 Test Item Value Reference Range Interpretation Comme nts EBV Mononucleosis Screen (test code = [id number]) Negative Nega tive Lab Interpretation (test code = 55454-3) [facility] [id number] 16:44:00 Test Item Value Reference Range Interpretation Comments Streptococcus pyogenes (group A) Negative Negative antigen (test code = 36347-3) Lab Interpretation (test code = Normal [id number]) [facility]
[2021-10-01 12:02] LABS: Urine Blood Negative (Negative); Urine Glucose Negative (Negative); Urine Protein Negative (Negative); Urine Specific Gravity >=1.030 (1.005-1.030); Urine pH 5.5 (5.0-7.0)
[2021-10-01 12:10] LABS: Absolute Lymphocytes (CBC) 1.8 K/uL (0.7-4.9); Hematocrit 34.9 % (36.0-45.0); Lymphocytes % 24.8 % (15.3-44.8); MPV 7.9 fL (7.6-11.3); RBC Red Blood Cell Count 3.78 M/uL (3.86-4.86)
[2021-10-01 12:20] LABS: Protime INR 1.02
[2021-10-01 12:22] LABS: Barbiturates NEGATIVE (NEGATIVE); Benzodiazepines POSITIVE (NEGATIVE); Cocaine POSITIVE (NEGATIVE); METHAMPHETAM POSITIVE (NEGATIVE); Methadone NEGATIVE (NEGATIVE); Opiates NEGATIVE (NEGATIVE); Phencyclidine NEGATIVE (NEGATIVE); THC Cannibis POSITIVE (NEGATIVE)
[2021-10-01 12:32] LABS: ALT/SGPT 32 U/L (12-78); AST/SGOT 18 U/L (15-37); Albumin 3.1 g/dL (3.4-5.0); Alkaline Phosphatase 144 U/L (45-117); BUN Blood Urea Nitrogen 15 mg/dL (7-18); Bicarbonate 29 mmol/L (21-32); Bilirubin Direct < 0.1 mg/dL (0-0.2); Bilirubin Total 0.2 mg/dL (0.2-1.0); Glucose Level 86 mg/dL (74-106); Potassium 3.8 mmol/L (3.5-5.1); Protein, Total 7.6 g/dL (6.4-8.2); Sodium Level 139 mmol/L (136-145)
--- NOTE | 2021-10-01 14:46 | ER ---
Nurse's Notes [facility] Name: Felicitas Campbell Age: 31 yrs Sex: Female : 1990 Arrival Date: 10/01/2021 Time: 10:25 Bed 13 Private MD: Diagnosis: Depression Presentation: 10/01 10:27 Chief complaint: Patient states: "I am having major depression. my anxiety is so jd3 freaking high. I don't trust no body. I don't feel like myself. my anger has been really bad and it scares me. I feel alone. I am mentally tired.". Coronavirus screen: At this time, the client does not indicate any symptoms associated with coronavirus-19. Ebola Screen: No symptoms or risks identified at this time. Initial Sepsis Screen: Does the patient meet any 2 criteria? No. Patient's initial sepsis screen is negative. Does the patient have a suspected source of infection? No. Patient's initial sepsis screen is negative. Risk Assessment: Do you want to hurt yourself or someone else? Patient reports no desire to harm self or others. Onset of symptoms was September 28, 2021. 10:27 Acuity: BERNIE 3 jd3 10:27 Method Of Arrival: EMS: [facility] jd3 Triage Assessment: 10:34 General: Appears in no apparent distress. Behavior is cooperative, appropriate for age, jd3 crying. Pain: Complains of pain in right ankle. Neuro: Level of Consciousness is awake, alert, obeys commands, Oriented to person, place, time, situation. Cardiovascular: Capillary refill < 3 seconds Patient's skin is warm and dry. Respiratory: Airway is patent Respiratory effort is even, unlabored, Respiratory pattern is regular, symmetrical, Denies cough, shortness of breath. 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 - Social history:: Smoking status: Patient reports the use of cigarette tobacco products, smokes one-half pack cigarettes per day. Screenin:45 Abuse screen: Denies threats or abuse. Denies injuries from another. Nutritional bp screening: No deficits noted. Tuberculosis screening: No symptoms or risk factors identified. Fall Risk None identified. Assessment: 10:45 General: SEE TRIAGE NOTE. bp 12:00 Reassessment: PT AMBULATORY FROM TRIAGE. bp 13:00 Reassessment: No changes from previously documented assessment. Patient and/or family bp updated on plan of care and expected duration. Pain level reassessed. 13:45 Reassessment: [facility] SCREENER AT B/S. bp 14:33 Reassessment: PT D/C OWN PIV AND ELOPED AFTER [facility] SCREENER INFORMED HER HE WOULD bp RECOMMEND INPATIENT TREATMENT FOR HER DRUG HABIT. PT CONTINUES TO DENY SI AND HI. Psych: 12:06 [place] Suicide Severity Screening: In the past month, have you wished you were bp or wished you could go to sleep and not wake up? Patient responds "No." "In the past month, have you actually had any thoughts of killing yourself?" Patient responds "no." "In your lifetime, have you ever done anything, started to do anything, or prepared to do anything to end your life?" Patient responds "no." DENIES SI. Subjective: Patient's mood is sad, Delusions are denied, Hallucinations are denied Having thoughts of NEITHER. Objective: Patient is cooperative, Speech is normal, Affect is appropriate, Patient has mutilated themselves by NONE. Interventions: N/A. Safety Checks: N/A. Pt denies substance abuse HISTORICAL IVDA. Commitment: N/A. Vital Signs: 10:30 BP 125 / 81; Pulse 99; Resp 17 S; Temp 97.8(TE); Pulse Ox 100% on R/A; Weight 58.97 kg jd3 (R); Height 5 ft. 4 in. (162.56 cm) (R); Pain 8/10; 12:07 BP 94 / 63; Pulse 84; Resp 16; Pulse Ox 100% ; bp 13:00 BP 98 / 53; Pulse 87; Resp 16; Pulse Ox 100% ; bp 14:00 BP 99 / 60; Pulse 89; Resp 16; Pulse Ox 99% ; bp 10:30 Body Mass Index 22.31 (58.97 kg, 162.56 cm) jd3 ED Course: 10:25 Patient arrived in ED. socorro 10:27 Shane Dimas PA is PHCP. irena 10:27 Larry Marin MD is Attending Physician. m 10:29 Triage completed. jd3 10:31 Arm band placed on Patient placed in waiting room, Patient notified of wait time. jd3 10:34 Nurse Practitioner and/or Physician Contact Center Professional to see patient. jd3 11:44 Fredy Hurtado, RN is Primary Nurse. bp 11:45 Patient has correct armband on for positive identification. Bed in low position. Call bp light in reach. Side rails up X2. 11:55 Inserted saline lock: 22 gauge in right antecubital area, using aseptic technique. bp Blood collected. 12:06 EKG done, by ED staff, reviewed by Shane WILLS. mb7 14:35 No provider procedures requiring assistance completed. IV discontinued, intact, bp bleeding controlled, No redness/swelling at site. 14:44 Odell Fraire MD is Referral Physician. irena Administered Medications: No medications were administered Outcome: 14:35 Eloped from patient exam room, after seeing physician Time discovered patient gone: bp October 01, 2021 at 14:35 14:35 Condition: stable 14:45 Discharge ordered by . irena 15:14 Patient left the ED. bp Signatures: Shane Dimas PA PA jmm Davies, Jonathon, RN RN jd3 Peltier, Brian, JOSE EDUARDO RN Elvie Velasco Mary 7 Corrections: (The following items were deleted from the chart) 10: 10:29 Home Meds: Suboxone; jd3 j
--- NOTE | 2021-10-01 14:46 | EDPHYS ---
Physician Documentation [facility] Name: Felicitas Campbell Age: 31 yrs Sex: Female : 1990 Arrival Date: 10/01/2021 Time: 10:25 Bed 13 Private MD: ED Physician Larry Marin HPI: 10/01 10:27 This 31 yrs old Female presents to ER via EMS with complaints of Depression. jmm 10:27 The patient presents to the emergency department with depression. Onset: The jmm symptoms/episode began/occurred gradually, 3 day(s) ago. Associated signs and symptoms: Pertinent positives; depression, substance abuse, Pertinent negatives: hallucinations, suicide ideation. The patient has experienced similar episodes in the past. Patient states she has been off her psychiatric medication for over 2 years.. 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 - Social history:: Smoking status: Patient reports the use of cigarette tobacco products, smokes one-half pack cigarettes per day. ROS: 10:27 Constitutional: Negative for fever, chills, and weight loss, Cardiovascular: Negative jmm for chest pain, palpitations, and edema, Respiratory: Negative for shortness of breath, cough, wheezing, and pleuritic chest pain, Abdomen/GI: Negative for abdominal pain, nausea, vomiting, diarrhea, and constipation. 10:27 Psych: Positive for anxiety, depression, Negative for suicidal ideation. 10:27 All other systems are negative. Exam: 10:27 Head/Face: atraumatic. Eyes: EOMI, no conjunctival erythema appreciated ENT: Moist jmm Mucus Membranes Neck: Trachea midline, Supple Chest/axilla: Normal chest wall appearance and motion. Cardiovascular: Regular rate and rhythm. No edema appreciated Respiratory: Normal respirations, no respiratory distress appreciated Abdomen/GI: Non distended, soft Back: Normal ROM Skin: General appearance color normal MS/ Extremity: Moves all extremities, no obvious deformities appreciated, no edema noted to the lower extremities Neuro: Awake and alert Psych: Behavior is anxious, depressed, Mood is normal, Patient is cooperative and pleasant 10:27 Constitutional: The patient appears alert, awake, anxious. Vital Signs: 10:30 BP 125 / 81; Pulse 99; Resp 17 S; Temp 97.8(TE); Pulse Ox 100% on R/A; Weight 58.97 kg jd3 (R); Height 5 ft. 4 in. (162.56 cm) (R); Pain 8/10; 12:07 BP 94 / 63; Pulse 84; Resp 16; Pulse Ox 100% ; bp 13:00 BP 98 / 53; Pulse 87; Resp 16; Pulse Ox 100% ; bp 14:00 BP 99 / 60; Pulse 89; Resp 16; Pulse Ox 99% ; bp 10:30 Body Mass Index 22.31 (58.97 kg, 162.56 cm) jd3 MDM: 10:27 Patient medically screened. rossana 14:43 Data reviewed: vital signs, nurses notes. Counseling: I had a detailed discussion with irena the patient and/or guardian regarding: the historical points, exam findings, and any diagnostic results supporting the discharge/admit diagnosis, lab results, the need to transfer to another facility. ED course: Patient declined inpatient psychiatric treatment. was evaluated by [facility]. advised to return to the ED if symptoms worsen. . 10/01 10:36 Order name: Acetaminophen; Complete Time: 12:33 [facility] 10/01 10:36 Order name: Basic Metabolic Panel; Complete Time: 12:33 [facility] 10/01 10:36 Order name: CBC with Diff; Complete Time: 12:33 [facility] 10/01 10:36 Order name: ETOH Level; Complete Time: 12:33 [facility] 10/01 10:36 Order name: Hepatic Function; Complete Time: 12:33 [facility] 10/01 10:36 Order name: PT-INR; Complete Time: 12:33 [facility] 10/01 10:36 Order name: Ptt, Activated; Complete Time: 12:33 [facility] 10/01 10:36 Order name: Salicylate; Complete Time: 12:33 [facility] 10/01 10:36 Order name: Urine Drug Screen; Complete Time: 12:33 [facility] 10/01 10:36 Order name: EKG; Complete Time: 10:36 [facility] 10/01 10:36 Order name: EKG - Nurse/Tech; Complete Time: 12:04 [facility] 10/01 10:36 Order name: IV Saline Lock; Complete Time: 12:05 [facility] 10/01 10:36 Order name: Labs collected and sent; Complete Time: 12:05 [facility] 10/01 12:02 Order name: Urine Dipstick-Ancillary; Complete Time: 12: [facility] 10/01 10:36 Order name: Suicide Screening ([place]); Complete Time: 12:05 [facility] 10/01 10:36 Order name: Urine Dipstick-Ancillary (obtain specimen); Complete Time: 12:05 [facility] Administered Medications: No medications were administered Disposition: 19:13 Co-signature as Attending Physician, Larry Marin MD. rn Disposition Summary: 10/01/21 14:45 Discharge Ordered Location: Home [facility] Condition: Stable [facility] Diagnosis - Depression [facility] Followup: [facility] - With: Odell Fraire MD - When: As needed - Reason: Recheck today's complaints, Continuance of care, Re-evaluation by your physician Discharge Instructions: - Discharge Summary Sheet [facility] - Managing Depression, Adult [facility] Forms: - Medication Reconciliation Form [facility] - Thank You Letter [facility] - Antibiotic Education [facility] - Prescription Opioid Use [facility] Signatures: Dispatcher [employer] EDWA Shane Dimas PA PA [facility] Larry Marin MD MD rn Davies, Jonathon, RN RN jd3 Corrections: (The following items were deleted from the chart) 10:30 10:29 Home Meds: Suboxone; jd3 jd3 15:58 10:27 Head/Face: atraumatic. Eyes: EOMI, no conjunctival erythema appreciated ENT: [facility] Moist Mucus Membranes Neck: Trachea midline, Supple Chest/axilla: Normal chest wall appearance and motion. Cardiovascular: Regular rate and rhythm. No edema appreciated Respiratory: Normal respirations, no respiratory distress appreciated Abdomen/GI: Non distended, soft Back: Normal ROM Skin: General appearance color normal MS/ Extremity: Moves all extremities, no obvious deformities appreciated, no edema noted to the lower extremities Neuro: Awake and alert Psych: Behavior is normal, Mood is normal, Patient is cooperative and pleasant [facility]
[2021-10-01 17:25] VITALS: TEMP 97.8
[2021-10-01 17:30] VITALS: BP 99/60; O2SAT 99
--- NOTE | 2021-10-03 11:05 | EKG ---
Test Date: 2021-10-01 Test Time: 12:06:12 Extractions Technician: JULIO MEASUREMENT RESULTS: Intervals: Rate: 87 ID: [id number] QRSD: 76 QT: 372 QTc: 447 [place]: P: 64 ID: [id number] QRS: 70 T: 57 INTERPRETIVE STATEMENTS: Normal sinus rhythm Normal ECG Compared to ECG 04/30/2021 15:30:59 No significant changes Electronically Signed On 10-03-21 10:58:11 CDT by Bong Wilkins
== END 2021-10-01 15:14 | disposition home or self-care (01) ==
LOC: ER 10:23
DX: F32.A Depression, unspecified (principal); F41.9 Anxiety disorder, unspecified; F17.210 Nicotine dependence, cigarettes, uncomplicated; Z88.0 Allergy status to penicillin; Z88.1 Allergy status to other antibiotic agents
CPT/HCPCS: 36415; 80048; 80076; 80307; 80320; 80329; 81003; 85025; 85610; 85730; 93005; 99284

== ENCOUNTER 2022-07-19 17:55 | Emergency (ER) | payer OTHER ==
--- OUTSIDE RECORDS SUMMARY | 2022-07-19 18:03 | XMS REPORT | Continuity of Care Document ---
:1990 Author Organization [facility] t Address [address] [place] [address] Care Team Providers Name Role Phone Pily Arreaga Primary Care Physician Sylvia Modi Attending Clinician Payers Payer Name Policy Type Policy Number Effective Date Expiration Date [facility] [id number] 2017 [facility] MEDICAID 00:00:00 [facility] [id number] 2014 [facility] 00:00:00 Problems Condition Condition Condition Status Onset Resolution Last Treating Co mments Source Name Details Category Date Date Treatment Clinician Date Liveborn Liveborn Disease Active Unive rs by by 1-22 [place] 39 weeks 39 weeks Disease Active Unive rs gestation gestation 1-21 ity of of of 00:00: [place] 00 Medi kaylen Branch Previous Previous Disease Active Unive rs 1-21 ity of section section 00:00: [place] complicati complicati 00 Nv kemar bueno ng Branch , , antepartum antepartum condition condition or or complicati complicati on on Rubella Rubella Disease Active 2013-06 Univers non-immune non-immune 04 it y of status, status, 00:00: [place] antepartum antepartum 00 Me kemar Fonseca History of History of Disease Active 2013-06 U nivers drug abuse drug abuse 0-02 it y of 00:00: [place] 00 Medical Branch Bipolar Bipolar Disease Active Overview: Univ ers disorder disorder 11-02 Formattin ity of 00:00: g of this [place] 00 note Medical might be Branch different from the original. ICD10 Diagnosis Term Vocational Psychologist Utility Anxiety Anxiety Disease Active Univers and and 11-02 ity of depression [place] History of History of Problem Active C ommon opioid opioid Spirit abuse abuse - [facility] Abnormal Abnormal Problem Active Commo n urinalysis urinalysis Sp greer [facility] Bipolar Bipolar Problem Active Common disorder disorder Spirit [facility] Depression Depression Problem Active C ommon with with Spirit anxiety anxiety [facility] Depression Depression Problem Active C ommon [facility] Amenorrhea Amenorrhea Problem Active C ommon [facility] Anxiety Anxiety Problem Active Common [facility] Memory Memory Problem Active Common problem problem [facility] Peripheral Peripheral Problem Active C ommon edema edema [facility] Increased Increased Problem Active Com mon abdominal abdominal Spir it girth girth [facility] Abnormal Abnormal Problem Active Commo n weight weight Spirit gain gain [facility] Therapeuti Therapeuti Problem Active C ommon c drug c drug Spirit monitoring monitoring [facility] Need for Need for Problem Active Commo n hepatitis hepatitis Spir it C C - [facility] screening screening [facility] test test [facility] Umbilical Umbilical Problem Active Com mon hernia hernia Spirit without without - [facility] obstructio obstructio [facility] n and n and [facility] without without Medical gangrene gangrene Center Non-intrac Non-intrac Problem Active C ommon table table Spirit vomiting vomiting - [facility] with with St nausea, nausea, [facility] unspecifie unspecifie Me dical d vomiting d vomiting Ce nter type type Withdrawal Withdrawal Problem Active C ommon from from Spirit opioids opioids - [facility] Drug Drug Problem Active Common addiction addiction Spir it [facility] Generalize Generalize Problem Active C ommon d d Spirit abdominal abdominal - [facility] I pain pain [facility] Epigastric Epigastric Problem Active C ommon pain pain [facility] Cough Cough Diagnosis Active Common [facility] Mild Mild Diagnosis Active Common reactive reactive Spirit airways airways - [facility] disease, disease, St unspecifie unspecifie Shira kes d whether d whether Medi kaylen persistent persistent Ce nter Allergies, Adverse Reactions, Alerts Allergy Allergy Status Severity Reaction(s) Onset Inactive Treating Comm ents Source Name Type Date Date Clinician Tramadol Propensi Active Hives 2013-06 Univer s ty to 0-02 ity of adverse 00:00: [place] reaction 00 Medical s Branch TRAMADOL DRUG Active Hives 2013-06 Univers INGREDI 0-02 ity of 00:00: [place] 00 Medical Branch Amoxicil Propensi Active Shortness of Univers sun ty to Breath 5-13 ity of adverse 00:00: [place] reaction 00 Medical s to Branch drug Cycloben Propensi Active Shortness of Univers zaprine ty to Breath 5-13 ity of Hcl adverse 00:00: [place] reaction 00 Medical s to Branch drug Penicill Propensi Active Shortness of Univers ins ty to Breath 5-13 ity of adverse 00:00: [place] reaction 00 Medical s to Branch drug AMOXICIL DRUG Active SOB Univers SUN INGREDI 5-13 ity of 00:00: [place] 00 Medical Branch CYCLOBEN DRUG Active SOB 0 Univers ZAPRINE INGREDI 5-13 ity of HCL 00:00: [place] 00 Medical Branch PENICILL Drug Active SOB 0 Univers INS Class 5-13 ity of 00:00: [place] 00 Medical Branch PCN Adverse Active diarrhea Common Reaction Spirit [facility] Cycloben Adverse Active hives Common zaprine Reaction Spirit HCl - [facility] Amoxicil Adverse Active nausea and Com mon sun Reaction vomiting [facility] Social History Social Habit Start Date Stop Date Quantity Comments Source Alcohol Comment ocassional Universit y of [facility] Exposure to Not sure University of SARS-CoV-2 (event) [facility] Alcohol intake 2020-03-30 2020-03-30 Current drinker Unive rsity of 00:00:00 00:00:00 of alcohol [facility] (finding) Branch Cigarettes smoked 2017-07-14 2017-07-14 Univers ity of current (pack per 00:00:00 00:00:00 ) - Reported Branch Tobacco use and 2017-07-14 2017-07-14 Never used Universit y of exposure 00:00:00 00:00:00 [facility] History of tobacco 2014-02-17 Cigarette Smoker University of use 00:00:00 [facility] Sex Ass[birth year] At [birth year] Universit y of 00:00:00 00:00:00 [facility] Smoking Status Start Date Stop Date Source Current every day smoker 2017-07-14 00:00:00 Uni versity of [facility] Medications Ordered Filled Start Stop Current Ordering Indication Dosage Frequency Signature Comments Components Source Medication Medication Date Date Medication? Clinician (SIG) Name Name chlorpromaz 2019-06 Yes Take by Uni vers ine HCl 0-08 mouth. ity of (THORAZINE 16:59: [place] ORAL) 55 Medical Branch buspirone 2019-06 Yes Take by Unive rs HCl 0-08 mouth. ity of (BUSPIRONE 16:59: [place] ORAL) 55 Medical Branch benztropine 2019-06 Yes Take by Uni vers mesylate 0-08 mouth. ity of (BENZTROPIN 16:59: [place] E ORAL) 55 Medical Branch chlorpromaz 2019-06 Yes Take by Uni vers ine HCl 0-08 mouth. ity of (THORAZINE 11:59: [place] ORAL) 55 Medical Branch buspirone 2019-06 Yes Take by Unive rs HCl 0-08 mouth. ity of (BUSPIRONE 11:59: [place] ORAL) 55 Medical Branch benztropine 2019-06 Yes Take by Uni vers mesylate 0-08 mouth. ity of (BENZTROPIN 11:59: [place] E ORAL) 55 Medical Branch cefdinir 2019-06 2020- No [id number] 600mg Take 2 Univers 300 mg 0-08 10-19 capsules ity of capsule 00:00: 04:59 by mouth [place] 00 :00 every 24 Medical (twenty-fo Branch ur) hours for 10 days. Ondansetron Ondansetron 2018-06 Yes Shayy 1 tablet Common HCl HCl 1-19 [place] as needed Spirit 00:00: for - [facility] 00 nausea/vom [facility] Furosemide Furosemide 2018-0 Yes Shayy 1 tablet Common 8-14 [place] Spirit 00:00: - [facility] 00 [facility] Perphenazin Perphenazin Yes Shayy 1 tablet Common e e 12-23 [place] Spirit 00:00: - [facility] ChlorproMAZ ChlorproMAZ Yes Shayy 1 tablet Common INE HCl INE HCl 12-23 [place] Spirit 00:00: - [facility] 00 [facility] HYDROcodone 2020- No 1{tbl} Take 1 U nivers -acetaminop 07-16- tablet by it y of hen (NORCO) [...] as needed for Pain (scale 1-3). ibuprofen 2019- No 600mg Take 1 Univ ers 600 mg 07-16 tablet by ity of tablet 00:00: 00:00 mouth [place] 00 :00 every 6 Medical (six) Branch hours as needed for Pain (scale 1-3) or Pain (scale 4-6) (Pain). Take with food or milk. HydrOXYzine HydrOXYzine Yes Shayy as Common HCl HCl [place] directed [facility] Cogentin Cogentin Yes Shayy as Commo n [place] directed [facility] Suboxone Suboxone Yes Shayy as Commo n [place] directed [facility] Immunizations Ordered Filled Immunization Date Status Comments [facility] e Immunization Name Name Influenza Virus 2014-04-12 Completed Universit y of Vaccine Quad IM 3+ 00:00:00 [facility] Branch Influenza Virus 2014-04-12 Completed Universit y of Vaccine Quad IM 3+ 00:00:00 [facility] Branch TDAP 2014-03-24 Completed University of 00:00:00 [facility] Branch TDAP 2014-03-24 Completed University of 00:00:00 [facility] PPD (TB) 2014-02-16 Completed University of 00:00:00 [facility] PPD (TB) 2014-02-16 Completed University of 00:00:00 [facility] Branch Rubella 2009-11-02 Completed University of 00:00:00 [facility] Branch Rubella 2009-11-02 Completed University of 00:00:00 [facility] Branch Td 2009-06-23 Completed University of 00:00:00 [facility] Branch Td 2009-06-23 Completed University of 00:00:00 [facility] Vital Signs Vital Name Observation Time Observation Value Comments Source Systolic blood 2021-09-26 00:29:00 112 mm[Hg] Univer sity of pressure [facility] Diastolic blood 2021-09-26 00:29:00 75 mm[Hg] Unive rsity of pressure [facility] Heart rate 2021-09-26 00:29:00 80 /min [facility] Body temperature 2021-09-26 00:29:00 36.67 [facility] Respiratory rate 2021-09-26 00:29:00 20 /min [facility] Oxygen saturation in 2021-09-26 00:29:00 100 /min [facility] Arterial blood by [facility] Pulse oximetry [place] Body weight 2021-09-26 00:28:00 65.772 kg [facility] BMI 2021-09-26 00:28:00 28.32 kg/m2 [facility] Systolic blood 2020-03-30 17:10:00 115 mm[Hg] Univer sity of pressure [facility] Diastolic blood 2020-03-30 17:10:00 83 mm[Hg] Unive rsity of pressure [facility] Heart rate 2020-03-30 16:06:00 86 /min [facility] Body temperature 2020-03-30 16:06:00 36.94 [facility] Respiratory rate 2020-03-30 16:06:00 18 /min [facility] Body weight 2020-03-30 16:06:00 84.369 kg [facility] BMI 2020-03-30 16:06:00 36.33 kg/m2 [facility] Oxygen saturation in 2020-03-30 16:06:00 97 /min University Arterial blood by [facility] Pulse oximetry [place] Procedures Procedure Date / Time Performed Performing Clinician Josi dickens EBV-MONONUCLEOSIS 2020-03-30 17:17:[address] [facility] SCREEN [facility] Branch RAPID STREP SCREEN 2020-03-30 16:09:00 Cristi Messer [facility] [place] [facility] FOR GROUP A Medical Branch Encounters Start End Encounter Admission Attending Care Care Encounter Source Date/Time Date/Time Type Type Clinicians Facility Department ID 2021-09-25 2021-09-25 Emergency X [facility] ERT [id number] Univers 19:27:00 20:21:00 ity [facility] 2021-09-25 2021-09-25 Emergency [facility] [id number] Univers 19:27:00 20:21:00 [place] [id number] i ty of [place] [id number] [facility] [id number] [address] 2020-03-30 2020-03-30 Emergency Early, [facility] [id number] Univers 11:12:00 14:01:00 Sylvia Sahaton [id number] i ty of [place] [id number] [facility] [id number] [address] 2020-03-30 2020-03-30 Emergency X [facility] ERT [id number] Univers 10:45:00 10:45:00 ity [facility] 2019-09-24 2019-09-24 [id number] Common 11:00:00 11:00:00 [facility] [address] [facility] 2019-09-23 2019-09-23 [facility] [id number] Common 09:03:00 09:03:00 [facility] [address] [facility] 2019-06-29 2019-06-29 [facility] [id number] Common 15:00:00 15:00:[address] [facility] 2019-06-01 2019-06-01 [facility] [id number] Common 16:20:00 16:20:[address] [facility] 2019-05-11 2019-05-11 [facility] [id number] Common 11:00:00 11:00:[address] [facility] 2019-04-27 2019-04-27 [facility] [id number] Common 08:00:00 08:00:[address] [facility] 2019-04-01 2019-04-01 [facility] [id number] Common 22:08:00 22:08:[address] [facility] 2019-04-01 2019-04-01 [facility] [id number] Common 10:40:00 10:40:[address] [facility] 2019-03-09 2019-03-09 [facility] [id number] Common 14:55:00 14:55:[address] [facility] 2019-02-12 2019-02-12 [facility] [id number] Common 15:37:00 15:37:[address] [facility] 2019-02-03 2019-02-03 [facility] [id number] Common 13:40:00 13:40:[address] [facility] 2018-12-28 2018-12-28 [facility] [id number] Common 21:59:00 21:59:[address] [facility] 2018-12-23 2018-12-23 [facility] [id number] Common 14:00:00 14:00:[address] [facility] Results Test Description Test Time Test Comments Results Result Comments Source EBV-MONONUCLEOSIS SCREEN 2020-03-30 18:24:00 Test Item Value Reference Range Interpretation Comme nts EBV Mononucleosis Screen (test code = 8685714266) Negative Nega tive Lab Interpretation (test code = 21936-5) [facility] GROUP [id number] 16:44:00 Test Item Value Reference Range Interpretation Comments Streptococcus pyogenes (group A) Negative Negative antigen (test code = 56158-1) Lab Interpretation (test code = Normal 75702-5) [facility]
[2022-07-19 18:04] LABS: Urine Blood Negative (Negative); Urine Glucose Negative (Negative); Urine Protein Negative (Negative); Urine Specific Gravity 1.015 (1.005-1.030)
[2022-07-19 18:26] LABS: Absolute Lymphocytes (CBC) 2.6 K/uL (0.7-4.9); Hematocrit 39.3 % (36.0-45.0); Lymphocytes % 27.8 % (15.3-44.8); MCV 92.6 fL (80-100); MPV 8.4 fL (7.6-11.3); RBC Red Blood Cell Count 4.25 M/uL (3.86-4.86)
[2022-07-19 18:32] LABS: Protime INR 0.98
[2022-07-19 18:53] LABS: Barbiturates NEGATIVE (NEGATIVE); Benzodiazepines POSITIVE (NEGATIVE); Cocaine NEGATIVE (NEGATIVE); METHAMPHETAM POSITIVE (NEGATIVE); Methadone NEGATIVE (NEGATIVE); Opiates NEGATIVE (NEGATIVE); Phencyclidine NEGATIVE (NEGATIVE); THC Cannibis NEGATIVE (NEGATIVE)
[2022-07-19 18:53] LABS: ALT/SGPT 17 U/L (13-56); AST/SGOT 13 U/L (15-37); Albumin 4.1 g/dL (3.4-5.0); Alkaline Phosphatase 84 U/L (45-117); BUN Blood Urea Nitrogen 15 mg/dL (7-18); Bicarbonate 27 mmol/L (21-32); Bilirubin Total 0.2 mg/dL (0.2-1.0); Glomerular Filtration Rate 118 ml/min (=/>90); Glucose Level 94 mg/dL (74-106); Potassium 3.5 mmol/L (3.5-5.1); Protein, Total 8.1 g/dL (6.4-8.2); Sodium Level 138 mmol/L (136-145)
[2022-07-19 18:55] LABS: Bilirubin Direct < 0.1 mg/dL (0-0.2)
[2022-07-19 19:27] LABS: Urine Specific Gravity/Preg 1.015 (1.005-1.030)
[2022-07-19 19:27] LABS: SARS-CoV-2 Antigen Rapid Res Negative (Negative)
[2022-07-19] MEDS ORDERED: LORAZEPAM 1 MG TABLET ONE (19:47)
--- NOTE | 2022-07-19 22:34 | ER ---
Nurse's Notes [facility] Name: Felicitas Campbell Age: 32 yrs Sex: Female : 1990 Arrival Date: 07/19/2022 Time: 17:56 Bed 17 Private MD: Diagnosis: Suicidal ideations Presentation: 07/19 17:56 Chief complaint: EMS states: pt toned out for suicidal ideation started today. Hx of eh3 Fentanyl and methamphetamine use, pt states last used 2-3 days ago. Takes Seroquel and Thorazine for psychiatric conditions, but lost the medications and has not taken them in 4-5 days. Coronavirus screen: Vaccine status: Patient reports receiving the 2nd dose of the covid vaccine. Ebola Screen: No symptoms or risks identified at this time. Initial Sepsis Screen: Does the patient meet any 2 criteria? No. Patient's initial sepsis screen is negative. Does the patient have a suspected source of infection? No. Patient's initial sepsis screen is negative. Risk Assessment: Do you want to hurt yourself or someone else? Patient reports desire/thoughts of hurting themselves or someone else. Provider notified. Onset of symptoms was July 19, 2022. 17:56 Method Of Arrival: EMS: [facility] 17:56 Acuity: BERNIE 3 eh3 Triage Assessment: 17:56 General: Appears in no apparent distress. uncomfortable, Behavior is cooperative, eh3 appropriate for age, anxious. Pain: Denies pain. Neuro: Level of Consciousness is awake, alert, obeys commands, Oriented to person, place, time, situation. Cardiovascular: Capillary refill < 3 seconds Patient's skin is warm and dry. Respiratory: Airway is patent Respiratory effort is even, unlabored, Respiratory pattern is regular, symmetrical. GI: No signs and/or symptoms were reported involving the gastrointestinal system. Abdomen is flat, non-distended. : No signs and/or symptoms were reported regarding the genitourinary system. Derm: No signs and/or symptoms reported regarding the dermatologic system. Skin is pink, warm \\T\\ dry. Musculoskeletal: No signs and/or symptoms reported regarding the musculoskeletal system. Circulation, motion, and sensation intact. Range of motion: intact in all extremities. Historical: - Allergies: 18:14 Amoxicillin; eh3 18:14 cyclobenzaprine HCl; eh3 18:14 PENICILLINS; eh3 18:14 Tramadol HCl; eh3 18:14 Celexa; 3 - Home Meds: 18:14 Seroquel Oral [Active]; chlorpromazine Oral [Active]; 3 - PMHx: 18:14 DRUG ADDICTION; Umbilical hernia; 3 18:35 Schizoaffective; Anxiety; Bipolar disorder; Borderline Personality Disorder; Panic 3 attack; - PSHx: 18:14 section; 3 - Immunization history:: Adult Immunizations not up to date. - Social history:: Smoking status: Patient reports the use of cigarette tobacco products, smokes one pack cigarettes per day. Patient uses street drugs, Methamphetamine (Meth) Fentanyl, Patient/guardian denies using alcohol. Screenin:56 [place] ED Fall Risk Assessment (Adult) History of falling in the last 3 months, 3 including since admission No falls in past 3 months (0 pts) Confusion or Disorientation No (0 pts) Intoxicated or Sedated No (0 pts) Impaired Gait No (0 pts) Mobility Assist Device Used No (0 pt) Altered Elimination No (0 pt) Score/Fall Risk Level 0 - 2 = Low Risk. Abuse screen: Denies threats or abuse. Denies injuries from another. Nutritional screening: No deficits noted. Tuberculosis screening: No symptoms or risk factors identified. Assessment: 17:56 Reassessment: No changes from previously documented assessment. See triage assessment. 3 19:00 Reassessment: Patient appears in no apparent distress at this time. Patient and/or [facility] family updated on plan of care and expected duration. Pain level reassessed. Patient is alert, oriented x 3, equal unlabored respirations, skin warm/dry/pink. 19:42 Reassessment: Pt states she feels anxious like she's about to have a panic attack, 3 provider notified. 20:15 Reassessment: Pt states anxiety is reduced, requests to lay back in bed to rest. 3 20:45 Reassessment: Pt sleeping, eyes closed, equal unlabored respirations, skin eh3 warm/dry/pink. 21:45 Reassessment: Pt sleeping, eyes closed, equal unlabored respirations, skin eh3 warm/dry/pink. 21:48 Reassessment: Nurse to nurse report given to Shreya at [facility]. eh3 21:53 Reassessment: Nurse to nurse report given to Nayla Haider at [facility]. eh3 21:56 Reassessment: Nurse to nurse report given to Elsa at [facility]. eh3 22:45 Reassessment: Patient appears in no apparent distress at this time. Patient and/or eh3 family updated on plan of care and expected duration. Pain level reassessed. Patient is alert, oriented x 3, equal unlabored respirations, skin warm/dry/pink. 23:45 Reassessment: Pt sleeping, eyes closed, equal unlabored respirations, skin eh3 warm/dry/pink. Psych: 17:56 [place] Suicide Severity Screening: In the past month, have you wished you were eh3 or wished you could go to sleep and not wake up? Patient responds "yes." "In the past month, have you actually had any thoughts of killing yourself?" Patient responds "yes." "In your lifetime, have you ever done anything, started to do anything, or prepared to do anything to end your life?" Patient responds "yes." Patient reports suicidal intent occurred greater than 3 months prior. Subjective: Patient's mood is angry, hopeless, Delusions are denied, Hallucinations are auditory, visual, describes hallucinations as "demonic" Having thoughts of suicide. Denies suicidal plan. Objective: Patient is cooperative, using poor eye contact, Speech is normal, soft, Affect is appropriate, Patient has mutilated themselves by cutting with razor blades. Superficial cuts present on left forearm, pt states she did this 2 days ago. Interventions: Removed personal items and placed in bag. Patient placed in hospital gown. Searched person for dangerous items. Urine collected and sent for urine drug test. Belonging list filled out. Safety Checks: Personal items have been removed. Door is open. No visitors are present at this time. Patient uses methamphetamines Last use was 2 days ago. Commitment: Patient will be a voluntary commitment. Vital Signs: 17:56 BP 127 / 83; Pulse 66; Resp 18; Temp 97.8; Pulse Ox 100% on R/A; tm3 17:56 BP 120 / 82; Pulse 59; Resp 18; Pulse Ox 95% on R/A; Weight 56.7 kg; Height 5 ft. 0 in. eh3 (152.40 cm); 17:56 Body Mass Index 24.41 (56.70 kg, 152.40 cm) eh3 ED Course: 17:56 Patient arrived in ED. eh3 17:56 Jackie Stephens FNP-C [facility]. kb 17:56 Kurt Knight MD is Attending Physician. kb 17:56 Arm band placed on. eh3 18:06 Urine collected: clean catch specimen, clear. tm3 18:14 Triage completed. eh3 18:15 Urine --Ancillary (enter results) Sent. mm9 18:15 Missed attempt(s): 20 gauge in left antecubital area. mm9 18:15 Patient has correct armband on for positive identification. Placed in gown. Bed in low mm9 position. Side rails up X 1. Warm blanket given. Pulse ox on. NIBP on. 18:24 Initial lab(s) drawn, by pr, sent to lab. Inserted saline lock: 22 gauge in left aa5 antecubital area, using aseptic technique. Blood collected. 18:37 Mojgan Stringer, RN is Primary Nurse. eh3 18:52 Acetaminophen Sent. mm9 18:52 Basic Metabolic Panel Sent. mm9 18:52 Hepatic Function Sent. mm9 18:52 Salicylate Sent. mm9 18:52 Urine Drug Screen Sent. mm9 18:52 EKG done, by ED staff, reviewed by Jackie AGUIRRE. mm9 19:02 COVID swab sent to lab. mm9 20:55 Pt has been medically cleared per EXECUTIVE RECRUITER Jackie Stephens. Faxed current chart to all available age acceptable psych facilities. 21:37 Shreya with [facility] called to do a Nurse to Nurse. 21:43 Nayla with [facility] called to do a Nurse to Nurse. 21:51 [place] [facility] [place] do [place] Nurse to Nurse. 21:53 Pt accepted to [facility] by Liz Pearson, per Nayla. 07/20 00:03 No provider procedures requiring assistance completed. Patient transferred, IV remains eh3 in place. Administered Medications: 07/19 19:46 Drug: Ativan (LORazepam) 1 mg Route: PO; eh3 20:15 Follow up: Response: Anxiety decreased eh3 Medication: 07/20 00:03 VIS not applicable for this client. eh3 Outcome: 07/19 22:34 ER care complete, transfer ordered by MD. mcnally 07/20 00:35 Patient left the ED. kl Signatures: Jackie Stephens, VESSEL SLAGMAN-C VESSEL SLAGMAN-Ckb Samantha Casey, RN RN Alvin Banks 3 Natalia Apodaca RN RN [place] Adelaida Patel Erin, RN RN 3 Christa Galeana mm9 Corrections: (The following items were deleted from the chart) 07/19 18:38 17:56 Chief complaint: EMS states: pt toned out for suicidal and homicidal ideation [facility] started today. Hx of Fentanyl and methamphetamine use, pt states last used 2-3 days ago [facility] 19:27 17:56 BP 120 / 82; Pulse 59bpm; Resp 18bpm; Pulse Ox 95% RA; [place] [id number] 20:13 17:56 Chief complaint: EMS states: pt toned out for suicidal and homicidal ideation [facility] started today. Hx of Fentanyl and methamphetamine use, pt states last used 2-3 days ago. Takes Seroquel and Thorazine for psychiatric conditions, but lost the medications and has not taken them in 4-5 days [facility] 21:50 21:48 Reassessment: Nurse to nurse report given to Shreya at [place] [id number] 22:00 21:56 Reassessment: Nurse to nurse report given to Nayla at [place] [id number]
--- NOTE | 2022-07-19 22:35 | EDPHYS ---
Physician Documentation [facility] Name: Felicitas Campbell Age: 32 yrs Sex: Female : 1990 Arrival Date: 07/19/2022 Time: 17:56 Bed 17 Private MD: ED Physician Kurt Knight HPI: 07/19 20:06 This 32 yrs old Female presents to ER via EMS with complaints of Suicidal Ideation. kb 20:06 The patient presents to the emergency department with depression, suicide ideation. kb Onset: The symptoms/episode began/occurred today. Associated signs and symptoms: Pertinent positives; depression. Severity of symptoms: At their worst the symptoms were moderate in the emergency department the symptoms are unchanged. The patient has experienced similar episodes in the past. The patient has not recently seen a physician. 20:07 Pt reports suicidal ideations that started today. Has superficial abrasions to left kb forearm from a few days ago. Pt denies homicidal ideations. Historical: - Allergies: 18:14 Amoxicillin; eh3 18:14 cyclobenzaprine HCl; eh3 18:14 PENICILLINS; eh3 18:14 Tramadol HCl; eh3 18:14 Celexa; eh3 - Home Meds: 18:14 Seroquel Oral [Active]; chlorpromazine Oral [Active]; eh3 - PMHx: 18:14 DRUG ADDICTION; Umbilical hernia; eh3 18:35 Schizoaffective; Anxiety; Bipolar disorder; Borderline Personality Disorder; Panic eh3 attack; - PSHx: 18:14 section; eh3 - Immunization history:: Adult Immunizations not up to date. - Social history:: Smoking status: Patient reports the use of cigarette tobacco products, smokes one pack cigarettes per day. Patient uses street drugs, Methamphetamine (Meth) Fentanyl, Patient/guardian denies using alcohol. ROS: 20:06 Constitutional: Negative for fever, chills, and weight loss. kb 20:06 Psych: Positive for depression, suicidal ideation. 20:06 All other systems are negative. Exam: 18:53 Constitutional: This is a well developed, well nourished patient who is awake, alert, kb and in no acute distress. Head/Face: Normocephalic, atraumatic. ENT: Moist Mucous membranes Cardiovascular: Regular rate and rhythm with a normal S1 and S2. No gallops, murmurs, or rubs. No pulse deficits. Respiratory: Respirations even and unlabored. No increased work of breathing. Talking in full sentences Abdomen/GI: Soft, non-tender. No distention MS/ Extremity: Pulses equal, no cyanosis. Neurovascular intact. Full, normal range of motion. Neuro: Awake and alert, GCS 15, oriented to person, place, time, and situation. Moves all extremities. Normal gait. 18:53 ECG was reviewed by the Attending Physician. 18:53 Skin: injury, abrasion(s), small abrasion noted, of the dorsal aspect of left forearm. 18:53 Psych: Behavior/mood is pleasant, cooperative, Affect is flat, Oriented to person, place, time, Patient having thoughts of suicide. Denies suicidal plan. Vital Signs: 17:56 BP 127 / 83; Pulse 66; Resp 18; Temp 97.8; Pulse Ox 100% on R/A; tm3 17:56 BP 120 / 82; Pulse 59; Resp 18; Pulse Ox 95% on R/A; Weight 56.7 kg; Height 5 ft. 0 in. eh3 (152.40 cm); 17:56 Body Mass Index 24.41 (56.70 kg, 152.40 cm) eh3 MDM: 17:57 Patient medically screened. kb 20:50 Data reviewed: vital signs, nurses notes. Consideration of Admission/Observation Pt kb will be transferred to psychiatric facility on voluntary basis. Historians other than the Patient: EMS: EMS. Counseling: I had a detailed discussion with the patient and/or guardian regarding: the historical points, exam findings, and any diagnostic results supporting the discharge/admit diagnosis, lab results, the need to transfer to another facility. 22:06 Differential diagnosis: depression, acute stress reaction, suicidal ideations. kb 22:33 ED course: Dr Hill accepts pt to [facility] without consult . kb 07/19 17:59 Order name: Acetaminophen; Complete Time: 18:56 kb 07/19 17:59 Order name: Basic Metabolic Panel; Complete Time: 18:56 kb 07/19 17:59 Order name: CBC with Diff; Complete Time: 18:30 kb 07/19 17:59 Order name: ETOH Level; Complete Time: 18:50 kb 07/19 17:59 Order name: Hepatic Function; Complete Time: 18:56 kb 07/19 17:59 Order name: PT-INR; Complete Time: 18:34 kb 07/19 17:59 Order name: Ptt, Activated; Complete Time: 18:34 kb 07/19 17:59 Order name: Salicylate; Complete Time: 19:46 kb 07/19 17:59 Order name: Urine Drug Screen; Complete Time: 18:54 kb 07/19 17:59 Order name: EKG; Complete Time: 17:59 kb 07/19 18:05 Order name: Urine Dipstick-Ancillary; Complete Time: 18:22 EDMS 07/19 18:13 Order name: Urine --Ancillary (enter results); Complete Time: 19:46 eb 07/19 18:54 Order name: SARS RAPID; Complete Time: 19:46 kb 07/19 17:59 Order name: EKG - Nurse/Tech; Complete Time: 18:37 kb 07/19 17:59 Order name: IV Saline Lock; Complete Time: 18:37 kb 07/19 17:59 Order name: Labs collected and sent; Complete Time: 18:37 kb 07/19 17:59 Order name: Suicide Precautions; Complete Time: 18:37 kb 07/19 17:59 Order name: Suicide Screening ([place]); Complete Time: 18:37 kb 07/19 17:59 Order name: Urine Dipstick-Ancillary (obtain specimen); Complete Time: 18:15 kb 07/19 17:59 Order name: Urine Test (obtain specimen); Complete Time: 18:15 kb 07/19 18:24 Order name: Diet Finger Food; Complete Time: 18:24 mm9 EC:53 Rate is 65 beats/min. Rhythm is regular. QRS [place] is Normal. FL interval is normal at kb 140 msec. QRS interval is normal at 80 msec. QT interval is normal at 420 msec. Administered Medications: 19:46 Drug: Ativan (LORazepam) 1 mg Route: PO; eh3 20:15 Follow up: Response: Anxiety decreased eh3 Disposition Summary: 07/19/22 22:34 Transfer Ordered Transfer Location: Psych Facility kb Reason: Higher level of care kb Condition: Stable kb Problem: new kb Symptoms: are unchanged kb Accepting Physician: Dr Hill(07/20/22 00:35) kl Diagnosis - Suicidal ideations kb Forms: - Medication Reconciliation Form kb - SBAR form kb Signatures: Dispatcher [employer] Jackie Willis, CURB SUPERVISOR-C CURB SUPERVISOR-Samantha Strauss, RN RN Mojgan Murray RN RN eh3 Corrections: (The following items were deleted from the chart) 20:08 20:06 Onset: The symptoms/episode began/occurred last week, dali mcnally 07/20 00:35 07/19 22:34 Dr Liz mckeon
[2022-07-20 01:12] VITALS: BP 120/82; TEMP 97.8; O2SAT 95
== END 2022-07-20 00:35 ==
LOC: ER 17:55
DX: R45.851 Suicidal ideations (principal); Z20.822 Contact with and (suspected) exposure to COVID-19; Z88.0 Allergy status to penicillin; Z88.1 Allergy status to other antibiotic agents; Z88.5 Allergy status to narcotic agent; Z88.8 Allergy status to other drugs, medicaments and biological substances
CPT/HCPCS: 85025; 80048; 36415; 81025; 85610; 80076; 85730; 81003; 80307; 87811; G0480 ×3; 93005; 99285